=== PATIENT | male | born 1980 ===

== ENCOUNTER 2023-11-02 14:37 | Outpatient (REF) | payer MEDICAID, SELFPAY ==
--- NOTE | ~2023-11-02 | XR_ITS ---
EXAMINATION: XR LUMBOSACRAL SPINE CLINICAL INFORMATION: Low back pain, sciatica COMPARISON: None available. TECHNIQUE: Three views of the lumbosacral spine. FINDINGS: Straightening of lumbar lordosis. The lumbar vertebral bodies demonstrate normal height. Minimal retrolisthesis of L5 over S1. Mild intervertebral disc space narrowing at L4-L5 and L5-S1. Mild facet arthropathy at multiple levels. Paraspinous soft tissues appear unremarkable. Bilateral sacroiliac joints are intact. XR/XR lumbar spine 2-3V IMPRESSION: Mild degenerative changes at L4-L5 and L5-S1. Mild multilevel facet arthropathy.
== END 2023-11-02 14:38 | disposition home or self-care (01) ==
LOC: HO.HHCX 14:37
PROVIDERS: Visit Provider Internal Medicine
DX: M54.31 Sciatica, right side (principal); M54.32 Sciatica, left side
CPT/HCPCS: 72100

== ENCOUNTER 2024-01-09 01:41 | Emergency (ER) | payer MEDICAID, SELFPAY ==
--- NOTE | ~2024-01-09 | CT_ITS ---
EXAMINATION: CT ABDOMEN AND PELVIS WITHOUT CONTRAST CLINICAL INFORMATION: Right flank pain. COMPARISON: None available. TECHNIQUE: Multidetector volumetric imaging was performed from the superior aspect of the liver through the pubic symphysis. Sagittal and coronal reformatted images were obtained on the technologist's workstation. This CT examination was performed using dose optimization techniques as appropriate, variously including the following: *Automated exposure control *Adjustment of mA and/or kV according to patient size (this includes techniques or standardized protocols for targeted exams where dose is matched to indication/reason for exam; i.e. extremities or head) *Use of iterative reconstruction technique DLP: 681 mGy-cm FINDINGS: LUNG BASES: The visualized lung bases are unremarkable. LIVER, GALLBLADDER, AND BILIARY TREE: The liver is normal in size, shape, and attenuation. No focal hepatic lesion or biliary ductal dilatation is present. Gallstones are noted. PANCREAS: Unremarkable. SPLEEN: Unremarkable. ADRENAL GLANDS: Unremarkable. KIDNEYS AND URETERS: The kidneys are normal in size, shape, and attenuation. No hydronephrosis, hydroureter, or calculi seen. No perinephric stranding. There is a 2 cm hypodensity upper pole left kidney likely a cyst. BLADDER: Unremarkable. GASTROINTESTINAL TRACT: The small and large bowel are unremarkable. The appendix is unremarkable. ABDOMINAL WALL: There is a small umbilical hernia containing fat. LYMPH NODES: Normal. VASCULAR: Unremarkable. PELVIC VISCERA: Unremarkable. OSSEOUS STRUCTURES: Unremarkable. CT/CT abdomen pelvis wo IV con IMPRESSION: 1. No evidence of renal calculi or hydronephrosis. 2. Cholelithiasis. 3. Small umbilical hernia containing fat. Fleischner guidelines were followed. Electronically signed by: Mp Rueda MD 01/09/2024 03:59 AM EDT
[2024-01-09 01:45] VITALS: BP 163/89; PULSE 71; RESP 18; TEMP 36.4; O2SAT 100; BMI 32.7
--- NOTE | 2024-01-09 02:10 | ED.ABDPAIN ---
HPI - Abdominal Pain General Chief Complaint: Abdominal Pain Stated Complaint: abd pain Time Seen by Provider: 01/09/24 02:10 Source: patient Mode of arrival: ambulatory Limitations: no limitations History of Present Illness ED Provider: grace HPI narrative: Patient with history of gallstones 6 months ago when he was in [place] had minor episodes of abdominal pain after that had dinner earlier since 23:00 noted pain in epigastric area radiated to the right flank area with nausea and vomiting x2 no urinary complaints no hematuria Related Data Previous Rx's ?Medication ?Instructions ?Recorded ondansetron 4 mg disintegrating 4 mg PO Q6-8H PRN nausea and 01/09/24 tablet vomiting #7 tabs oxycodone 5 mg tablet 5 mg PO Q6H PRN pain #20 tabs 01/09/24 Allergies Allergy/AdvReac Type Severity Reaction Status Date / Time No Known Allergies Allergy Verified 01/09/24 01:47 [No Known Allergies*] Review of Systems Review of Systems Yes all other systems are reviewed and are negative [facility] Social History Social History Smoked in Last 30 Days: No Use of substances other than those prescribed or required for medical reasons: No Advance Directives: No Do you have a plan to hurt others: No Plan Physical Exam ED Vital Signs: Vital Signs - 24 hr 01/09/24 01:45 01/09/24 03:46 Temperature 97.5 F 98 F Pulse Rate 71 62 Respiratory Rate 18 16 Blood Pressure 163/89 H 161/95 H Pulse Oximetry 100 99 Oxygen Delivery Method Room Air Room Air BMI result Body Mass Index 32.7 Appearance: Alert. Oriented X3. No acute distress. Eyes: PERRLA, No Nystagmus ENT: Pharynx normal. Oral Mucosa moist Neck: Normal inspection. Neck supple. CVS: Normal heart rate and rhythm. Pulses normal. Respiratory: No respiratory distress. Equal air entry bilateral, no wheezing/rales/rhonchi Abdomen: Soft and deep tenderness epigastric area and right CVA Bowel sounds are present, no mass palpable, Skin: Skin warm and dry. Normal skin color. Normal skin turgor. Extremities: No lower extremity edema. No calf tenderness Neuro: Oriented X 3. No motor deficit. Medical Decision Making Medical Decision Making MDM Narrative: Patient's gallstones no signs of cholecystitis labs are stable CT scan shows gallstones multiple in his gallbladder area no wall thickening or free fluid around the gallbladder Differential Diagnosis Differential Diagnoses: The differential diagnosis associated with the presentation includes Lab Data MDM Lab Attestation statement: I reviewed the patient's lab results. 01/09/24 02:06 01/09/24 02:26 Labs: Lab Results 01/09/24 01/09/24 01/09/24 Range/Units 02:06 02:26 04:04 WBC 7.0 (4.8-10.8) X10*3/uL RBC 5.43 (4.60-5.80) X10*6/uL Hgb 16.1 (14.0-18.0) g/dl Hct 47.4 (42.0-52.0) % MCV 87.3 (80.0-98.0) fL MCH 29.7 (27.0-33.0) pg MCHC 34.0 (31.0-36.0) g/dl RDW 12.9 (11.0-16.0) % Plt Count 162 (160-400) X10*3/uL MPV 11.8 (9.4-12.4) fL Immature Gran % (Auto) 0.1 (0.0-0.4) % Neut % (Auto) 49.8 (45-73) % Lymph % (Auto) 36.8 (20-40) % [place] % (Auto) 10.3 (2-11) % Eos % (Auto) 2.3 (0-4) % Baso % (Auto) 0.7 (0-2) % Lymph # (Auto) 2.6 (1.2-4.9) X10*3/uL [place] # (Auto) 0.7 (0.1-1.2) X10*3/uL Eos # (Auto) 0.2 (0.0-0.4) X10*3/uL Baso # (Auto) 0.1 (0.0-0.2) X10*3/uL Abs Immat Gran (auto) 0.01 (0.00-0.03) X10*3/uL Absolute Neuts (auto) 3.5 (2.0-8.3) x10*3/uL Absolute Nucleated RBC 0.000 (0.0-0.012) X10*3/uL Nucleated RBC % (auto) 0.0 (0.0-0.2) /100WBC Sodium 142 (135-145) mmol/L Potassium 4.1 (3.3-5.1) mmol/L Chloride 106 (96-108) mmol/L Carbon Dioxide 28 (22-29) mmol/L Anion Gap 12 (12-20) BUN 16 (9-16) mg/dL Creatinine 1.12 (0.5-1.4) mg/dL Estim Creat Clear Calc 90.2 Estimated GFR > 60 Random Glucose 118 H (60-115) mg/dL Calcium 8.9 (8.4-10.2) mg/dL Total Bilirubin 0.4 (0.0-1.0) mg/dL Direct Bilirubin 0.1 (0.0-0.5) mg/dL AST 21 (5-37) U/L ALT 27 (0-40) U/L Alkaline Phosphatase 59 (39-117) U/L Total Protein 7.1 (6.5-8.0) g/dL Albumin 4.2 (3.5-5.0) g/dL Lipase 49 (8-78) U/L Urine Color Yellow Urine Appearance Clear Urine pH 6.0 (5.0-9.0) Ur Specific [place] 1.020 (1.005-1.025) Urine Protein Negative (Neg-Trace) mg/dL Urine Glucose (UA) Negative (Negative) mg/dL Urine Ketones Negative (Negative) mg/dL Urine Blood Negative (Negative) Urine Nitrite Negative (Negative) Ur Leukocyte Esterase Negative (Negative) Radiology Impression Discussion of test interpretation with radiology: I have reviewed the radiologist's reading. Radiologist Impression: [place] [id number] CT Scan Report Signed Patient: Caleb Love MR#: [id number] : 1980 Acct:[id number] Age/Sex: 43 / M ADM Date: 01/09/24 Loc: HO.ED Attending Dr: Ordering Physician: Mckay Banegas MD Date of Service: 01/09/24 Procedure(s): CT abdomen pelvis wo IV con Accession Number(s): [id number] cc: Physician,Unknown ; Mckay Banegas MD~ EXAMINATION: CT ABDOMEN AND PELVIS WITHOUT CONTRAST CLINICAL INFORMATION: Right flank pain. COMPARISON: None available. TECHNIQUE: Multidetector volumetric imaging was performed from the superior aspect of the liver through the pubic symphysis. Sagittal and coronal reformatted images were obtained on the technologist's workstation. This CT examination was performed using dose optimization techniques as appropriate, variously including the following: *Automated exposure control *Adjustment of mA and/or kV according to patient size (this includes techniques or standardized protocols for targeted exams where dose is matched to indication/reason for exam; i.e. extremities or head) *Use of iterative reconstruction technique DLP: 681 mGy-cm FINDINGS: LUNG BASES: The visualized lung bases are unremarkable. LIVER, GALLBLADDER, AND BILIARY TREE: The liver is normal in size, shape, and attenuation. No focal hepatic lesion or biliary ductal dilatation is present. Gallstones are noted. PANCREAS: Unremarkable. SPLEEN: Unremarkable. ADRENAL GLANDS: Unremarkable. KIDNEYS AND URETERS: The kidneys are normal in size, shape, and attenuation. No hydronephrosis, hydroureter, or calculi seen. No perinephric stranding. There is a 2 cm hypodensity upper pole left kidney likely a cyst. BLADDER: Unremarkable. GASTROINTESTINAL TRACT: The small and large bowel are unremarkable. The appendix is unremarkable. ABDOMINAL WALL: There is a small umbilical hernia containing fat. LYMPH NODES: Normal. VASCULAR: Unremarkable. PELVIC VISCERA: Unremarkable. OSSEOUS STRUCTURES: Unremarkable. CT/CT abdomen pelvis wo IV con IMPRESSION: 1. No evidence of renal calculi or hydronephrosis. 2. Cholelithiasis. 3. Small umbilical hernia containing fat. Fleischner guidelines were followed. Electronically signed by: Mp Rueda MD 01/09/2024 03:59 AM EDT Medications Administered Discontinued Medications Generic Name Dose Route Start Last Admin Trade Name Freq PRN Reason Stop Dose Admin Sodium Chloride 1,000 mls @ 999 mls/hr 01/09/24 02:21 01/09/24 03:36 Ns IV 01/09/24 03:21 Infused .Q1H1M ONE Infusion Ketorolac Tromethamine 30 mg 01/09/24 03:41 01/09/24 03:46 Ketorolac Tromethamine 30 Mg/Ml Vial IVPUSH 01/09/24 03:42 30 mg ONCE ONE Administration Morphine Sulfate 4 mg 01/09/24 02:21 01/09/24 02:30 Morphine Sulfate 4 Mg/Ml Cartridge IVPUSH 01/09/24 02:22 4 mg ONCE ONE Administration Protocol Ondansetron HCl 4 mg 01/09/24 02:21 01/09/24 02:30 Ondansetron Hcl 4 Mg/2 Ml Vial IVPUSH 01/09/24 02:22 4 mg ONCE ONE Administration Discharge Plan Discharge Clinical Impression: Gallstone Patient Disposition: Home, Self-Care Instructions: Gallstones (ED) Additional Instructions: Avoid fried food Follow up with surgeon for further evaluation and management Prescriptions: New ondansetron 4 mg tablet,disintegrating 4 mg PO Q6-8H PRN (Reason: nausea and vomiting) Qty: 7 0RF oxycodone 5 mg tablet 5 mg PO Q6H PRN (Reason: pain) Qty: 20 0RF Rx Instructions: Partial Fill upon patient request. Referrals: Rafa Muñoz MD [Physician] - 1 week Print Language: Danish
[2024-01-09 02:11] LABS: MANUAL DIFF FLAG NO
[2024-01-09 02:17] LABS: Basophils Absolute Auto 0.1 X10*3/uL (0.0-0.2); Basophils Percent Auto 0.7 % (0-2); Eosinophils Absolute Auto 0.2 X10*3/uL (0.0-0.4); Eosinophils Percent Auto 2.3 % (0-4); Hematocrit 47.4 % (42.0-52.0); Hemoglobin 16.1 g/dl (14.0-18.0); Imm Gran Abs Auto 0.01 X10*3/uL (0.00-0.03); Imm Gran Pct Auto 0.1 % (0.0-0.4); Lymphocytes Absolute Auto 2.6 X10*3/uL (1.2-4.9); Lymphocytes Percent Auto 36.8 % (20-40); Mean Corpuscular Hemoglobin 29.7 pg (27.0-33.0); Mean Corpuscular Volume 87.3 fL (80.0-98.0); Mean Platelet Volume 11.8 fL (9.4-12.4); Monocytes Absolute Auto 0.7 X10*3/uL (0.1-1.2); Monocytes Percent Auto 10.3 % (2-11); Neutrophils Absolute Auto 3.5 x10*3/uL (2.0-8.3); Neutrophils Percent Auto 49.8 % (45-73); Platelet Count 162 X10*3/uL (160-400); Red Blood Count 5.43 X10*6/uL (4.60-5.80); Red Cell Distribution Width 12.9 % (11.0-16.0)
[2024-01-09] MEDS: 0.9 % Sodium Chloride 1,000 ML 999 ML IV (02:29)
[2024-01-09] MEDS: Morphine Sulfate 4 MG/ML CARTRIDGE IVPUSH (02:30)
[2024-01-09] MEDS: ondansetron HCL 4 MG/2 ML VIAL IVPUSH (02:30)
--- NOTE | 2024-01-09 02:32 | PC.NURSE ---
Pt medicated per Mar.
[2024-01-09 02:45] LABS: Alanine Aminotransferase 27 U/L (0-40); Albumin Level 4.2 g/dL (3.5-5.0); Alkaline Phosphatase 59 U/L (39-117); Anion Gap 12 (12-20); Aspartate Amino Transferase 21 U/L (5-37); Bilirubin Direct 0.1 mg/dL (0.0-0.5); Bilirubin Total 0.4 mg/dL (0.0-1.0); Blood Urea Nitrogen 16 mg/dL (9-16); Calcium 8.9 mg/dL (8.4-10.2); Carbon Dioxide 28 mmol/L (22-29); Chloride 106 mmol/L (96-108); Creatinine Clr Calc Pharmacy 90.2; Estimated Glomerular Filt Rate > 60; Glucose Random 118 mg/dL (60-115); Lipase 49 U/L (8-78); Potassium 4.1 mmol/L (3.3-5.1); Sodium 142 mmol/L (135-145); Total Protein 7.1 g/dL (6.5-8.0)
--- NOTE | 2024-01-09 03:22 | PC.NURSE ---
pt back from Ct scan resting in bed.
[2024-01-09 03:46] VITALS: BP 161/95; PULSE 62; RESP 16; TEMP 36.6; O2SAT 99
[2024-01-09] MEDS: Ketorolac Tromethamine 30 MG/ML VIAL IVPUSH (03:46)
--- NOTE | 2024-01-09 03:50 | PC.NURSE ---
medicated for pain management.
[2024-01-09 04:11] LABS: Appearance Urine Clear; Color Urine Yellow; Glucose Urine UA Negative (Negative); Leukocyte Esterase Urine Negative (Negative); Nitrite Urine Negative (Negative); Urine Blood Negative (Negative); Urine Ketones Negative (Negative); Urine Protein Negative (Neg-Trace)
--- NOTE | 2024-01-09 05:00 | PC.NURSE ---
Reviewed discharge instructions with pt, pt verbalized understanding, pain level improved per pt, pt discharge home, pt had a steady gait and no sign of distress.
[2024-01-09 05:01] VITALS: BP 140/82; PULSE 68; RESP 16; TEMP 36.9; O2SAT 98
== END 2024-01-09 05:02 | disposition home or self-care (01) ==
PROVIDERS: Emergency Provider Internal Medicine
DX: K80.20 Calculus of gallbladder without cholecystitis without obstruction (principal); R10.13 Epigastric pain; R10.2 Pelvic and perineal pain; Z79.899 Other long term (current) drug therapy
CPT/HCPCS: 36415; 74176; 80048; 80076; 81003; 83690; 85025; 99284; 99285; J1885; J2270; J2405

== ENCOUNTER 2024-01-18 14:38 | Outpatient (AMB) | payer MEDICAID, SELFPAY ==
--- NOTE | 2024-01-18 14:45 | MHC.OFFVIS ---
Vital Signs 01/18/24 14:52 Height 5 ft 9 in Weight 200 lb BMI 29.5 BP 129/76 Blood Pressure Location Lt brachial Position Sitting Pulse 70 Intake Visit Reasons: abdominal pain/gallstones Intake Note: Patient is seen in office for ER follow up visit, following abdominal pain. Pt c/o: admits to abdominal pain on and off for aprox 6 months, had not been to ED prior, dx with gastritis in the past and was aggravated by abdominal pain, was told has stones and inflammation, still discomfort in the area taking Ibuprofen PRN ER/CT: 01/09/24 Manager Internet Required: Yes Manager Internet Language: Pickling Operator Services: Manager Internet Present Manager Internet Name: Jasmine RODRIGUEZ Information Interpreted: non-clinical & clinical Accompanied by: Family/Other Allergies No Known Allergies [No Known Allergies*] Allergy (Verified 01/18/24 14:50) Medication List - Last Reconciled 01/18/24 by Darin Wilkes MD No Known Home Meds HPI Comments Details: 43-year-old male patient presenting with complaints of abdominal pain in the epigastrium radiating across the right upper quadrant into the right flank. The pain is been progressing over the past 6 months becoming more severe and more frequent. He was evaluated in the emergency department on 01/09/2024. CT abdomen and pelvis confirmed gallstones in the neck of the gallbladder with no evidence of ductal dilatation or pericholecystic fluid. He reports the pain seems to be made worse with eating especially with greasy/fried foods, pizza in particular. Spicy foods also seem to bother him as well. He reports nausea without vomiting, chills without fever. He denies any bowel changes. He presents today to discuss cholecystectomy. [facility] Medical History (Updated 01/18/24 @ 15:10 by Darin Wilkes MD) Chronic cholecystitis due to cholelithiasis with choledocholithiasis Family History Father Stomach cancer Social History Alcohol intake: never Patient Tobacco Use Status: Never used Tobacco Review of Systems Const All systems reviewed & are unremarkable except as noted in HPI and below Physical Exam Const General: cooperative and no acute distress Nutritional Appearance: well nourished Orientation/consciousness: patient oriented x3 Limitations: no limitations HEENT Head: Yes normocephalic and Yes atraumatic Ears: hearing grossly normal bilaterally Resp Effort & Inspection: normal respiratory effort, no audible wheezes, no cough and no respiratory distress Cardio Jugular venous distension: no JVD GI Inspection: Yes normal to inspection Palpation (GI): Soft to palpation, Tenderness to palpation present (GI) in the RUQ and Recinos's sign positive, no guarding and not rigid Percussion: Yes normal to percussion Auscultation: normal bowel sounds Rectal Exam - Male: Yes deferred Skin Other: Warm, dry, no rash Neuro General: patient oriented x3 Extrem General: Yes no clubbing, cyanosis or edema Results Reviewed Results Reviewed: CT abdomen pelvis: Assessment & Plan Assessment & Plan (1) Chronic cholecystitis due to cholelithiasis with choledocholithiasis: Code(s): K80.64 - Calculus of gallbladder and bile duct with chronic cholecystitis without obstruction Category: Medical Plan 43-year-old male patient presenting with complaints of abdominal pain epigastrium and right upper quadrant radiating into the back found to have multiple gallstones within the gallbladder by CT. Examination today reveals tenderness in the right upper quadrant with a positive Recinos sign. I reviewed the CT findings in detail with the patient and suggested an elective laparoscopic or possible open cholecystectomy. After discussion of the procedure, risks, and alternatives, he consents to the laparoscopic or possible open cholecystectomy. He will be scheduled as a short-stay surgery at his earliest convenience. Medications: Discontinued ondansetron Discontinued Reason: Patient Completed Course 4 mg PO Q6-8H PRN 7 tabs 0RF nausea and vomiting oxycodone Partial Fill upon patient request. Discontinued Reason: Patient Completed Course 5 mg PO Q6H PRN 20 tabs 0RF pain Coding Level of Care Code New Pt Level 4 (61292) Diagnoses Chronic cholecystitis due to cholelithiasis with choledocholithiasis K80.64
[2024-01-18 14:52] VITALS: BP 129/76; PULSE 70; BMI 29.5
== END 2024-01-18 15:04 | disposition home or self-care (01) ==
PROVIDERS: Visit Provider Surgery
DX: K80.64 Calculus of gallbladder and bile duct with chronic cholecystitis without obstruction (principal)
CPT/HCPCS: 99204

== ENCOUNTER → 2024-01-18 14:38 | Outpatient (BNVA) | payer MEDICAID, SELFPAY | PROVIDERS: Visit Provider Surgery | DX: K80.64 Calculus of gallbladder and bile duct with chronic cholecystitis without obstruction (principal); R10.9 Unspecified abdominal pain | CPT/HCPCS: 99202 ==

== ENCOUNTER 2024-02-08 08:30 | Outpatient (AMB) | payer OTHER, SELFPAY ==
[2024-02-08 08:39] VITALS: BP 122/78; PULSE 65; O2SAT 98; BMI 29.3
--- NOTE | 2024-02-08 08:39 | MHC.PC.OV ---
Vital Signs 02/08/24 08:39 Height 5 ft 9 in Weight 198 lb 8 oz BMI 29.3 BP 122/78 Blood Pressure Location Lt brachial Position Sitting Pulse 65 Pulse Source Pulse Oximeter Pulse Oximetry (%) 98 Oxygen Delivery Method Room Air Intake Visit Reasons: new patient Cut Out Marker Required: No Accompanied by: Self / Same As Patient Allergies No Known Allergies [No Known Allergies*] Allergy (Verified 02/17/24 17:12) Medication List - Last Reconciled 02/17/24 by Jann Mondragon MD ketoconazole 2% 1 appl topical DAILY oxycodone 5 mg PO Q6H PRN Tobacco use date assessed: 02/08/24 Dental Screening Dental Screen Date: 02/08/24 Did you have a dental visit in the last 12 months?: Yes Did you have a dental problem in the last 6 months where you did not have access to dental care?: No Was dental information given to patient?: Patient has dentist HPI new patient HPI Details 43-year-old male presents to the office to establish his care here. The physician food and beverage assistant present in the room was translating. Healthy male presented to the emergency room with abdominal pain. He was found to have gallstones and the surgeon is planning to do a cholecystectomy. He did not have a primary care provider and was advised to get 1 before the surgery. Currently patient is in good health and on no medications. He is a nonsmoker and no history of substance or alcohol use. Able to function and do all activities of daily living. Works at the local [employer]. [facility] Medical History Chronic cholecystitis due to cholelithiasis with choledocholithiasis Surgical History No pertinent past surgical history Family History Father Stomach cancer Social History Housing: House Alcohol intake: never Patient Tobacco Use Status: Never used Tobacco e-Cigarette/Vaping Use: Never Used service: No Current occupational status: employed Current occupational exposures/hazards: No Cognitive needs: No Hearing needs: No Vision needs: No Questionnaire PHQ-9 Over the last 2 weeks, how often have you been bothered by any of the following problems? 3. Trouble falling or staying asleep, or sleeping too much: not at all 4. Feeling tired or having little energy: several days 5. Poor appetite or overeating: several days 6. Feeling bad about yourself - or that you are a failure or have let yourself or your family down: several days 7. Trouble concentrating on things, such as reading the newspaper or watching television: not at all 8. Moving or speaking so slowly that other people could have noticed. Or the opposite - being so fidgety or restless that you have been moving around a lot more than usual: not at all 9. Thoughts that you would be better off or of hurting yourself in some way: not at all Source: Developed by Drs. Jeanmarie Abreu, Becky Estrada, Jaylen Parham and colleagues, with an educational bartolome from [employer]. Thrive Questionnaire Date Thrive assessed: 02/08/24 I am a: Patient What is your living situation today?: I have a steady place to live Within the past 12 months, did the food you bought not last and you didn't have the money to get more?: I choose not to answer this question Within the past 12 months, did you worry whether your food would run out before you got money to buy more?: I choose not to answer this question Do you have trouble paying for medicines?: No Do you have trouble getting transportation to medical appointments?: No Do you have trouble paying your heating and electricity bill?: I choose not to answer this question Do you have trouble taking care of your child, family member or friend?: I choose not to answer this question Do you have trouble with day-to-day activities such as bathing, preparing meals, shopping, managing finances, etc.?: No Are you currently unemployed and looking for a job?: No Are you interested in more education?: No Please select the resources that you would like help with: None Currently or been in a relationship where the following occur: I choose not to answer THRIVE Score: 0 AUDIT C Alcohol Use Questionnaire (AUDIT-C) 1. How often do you have a drink containing alcohol?: Never 3. How often do you have six or more drinks on one occasion?: Never Total Score: 0 SIGRID-7 AMB Questionnaire SIGRID-7 Date SIGRID - 7 assessed: 02/08/24 Feeling nervous, anxious, or on edge: 0 = Not at all Not being able to stop or control worryin = Not at all Worrying too much about different things: 0 = Not at all Trouble relaxin = Not at all Being so restless that it is hard to sit still: 0 = Not at all Becoming easily annoyed or irritable: 0 = Not at all Feeling afraid as if something awful might happen: 0 = Not at all Total SIGRID-7 score (0-4 normal; 5-9 mild; 10-14 moderate; 15-21 severe): 0 Source: Developed by Drs. Jeanmarie Abreu, Becky Estrada, Jaylen Parham and colleagues, with an educational bartolome from [employer]. Physical exam (Primary Care) Vital Signs: Last Vital Signs Pulse 65 02/08/24 08:39 BP 122/78 02/08/24 08:39 Pulse Ox 98 02/08/24 08:39 Oxygen Delivery Method Room Air 02/08/24 08:39 BMI result Body Mass Index 29.3 Tobacco/Smoking Status: Tobacco use Status Tobacco use date assessed 02/08/24 02/08/24 08:44 Patient Tobacco Use Status Never used Tobacco 02/08/24 08:44 e-Cigarette/Vaping Use Never Used 02/08/24 08:44 Thrive Assessment: Date of Thrive Assessment Date Thrive assessed 02/08/24 02/08/24 08:44 Currently or been in a relationship where the following occur: I choose not to answer Const General: cooperative and healthy appearing Nutritional Appearance: well nourished Orientation/consciousness: patient oriented x3 Limitations: no limitations HENMT Head: Yes normal to inspection Eyes General: appearance normal, both eyes and all related structures Neck Neck: Yes normal visual inspection Chest Chest palpation & inspection: normal palpation of entire chest wall Resp Effort & Inspection: normal respiratory effort Skin Other: Hyperpigmented area 3 cm in size or near the left arm with overlying scales. Similar lesion on the right arm. Neuro General: patient oriented x3 Office Procedures EKG 59480-Efuqzvqjyvyxennry, Complete Flu Questionnaire Does the patient have a severe egg allergy?: No Does the patient have severe life threatening allergies?: No Does the patient have a fever or illness today?: No Has the patient ever had Guillain-Anza Syndrome?: No Has the patient ever had any past reaction to a flu shot?: No Results AMB Hemoglobin A1c AMB Hemoglobin A1c 5.4 % Last Edit by JENNIFER Seo on 02/08/24 09:34 Immunizations Fluarix Triv [id number] (PF) 45 mcg (15 mcg x 3)/0.5 mL IM syringe Performing Provider: Jann Mondragon MD [place] [facility] [facility] Administered by: JENNIFER Seo on 02/08/24 09:11 Dose Route Admin Location Dispensed Lot Number Expiration Date [employer] 0.5 mL IM Right Deltoid 0.5 mL [id number] 09/18/24 [id number] [place] VIS Given Date VIS Provided VIS Publication Date 02/08/24 Single Vaccine 20 Eligibility Eligibility Date Funding Source Not [facility] Eligible 02/08/24 Private Results Reviewed Results Reviewed: Laboratory Last Values Hgb A1c (Clinic) 5.4 % (4.0-6.0) 02/08/24 09:10 Coding Level of Care Code New Pt Level 4 (19765) Complex EM visit Add On G2211 Diagnoses Chronic cholecystitis due to cholelithiasis with choledocholithiasis K80.64 Tinea corporis B35.4 Encounter for pre-operative cardiovascular clearance Z01.810 CPT Codes EKG - CPT: 27440-[id number], Complete ([id number]) Assessment & Plan Assessment & Plan (1) Chronic cholecystitis due to cholelithiasis with choledocholithiasis: Code(s): K80.64 - Calculus of gallbladder and bile duct with chronic cholecystitis without obstruction Category: Medical Plan: Patient can proceed for surgery. Postop care and DVT prophylaxis as per the general surgeon. Cholesterol blood work has been added to the regimen. (2) Tinea corporis: Code(s): B35.4 - Tinea corporis Plan: Ketoconazole ointment has been prescribed. (3) Encounter for pre-operative cardiovascular clearance: Code(s): Z01.810 - Encounter for preprocedural cardiovascular examination Plan: As above. Orders: Orders AMB EKG-In Office 02/08/24 K80.64 - Calculus of gallbladder and bile duct with chronic cholecystitis without obstruction Influenza [id number] Immunization 02/08/24 Z23 - Encounter for immunization AMB Hemoglobin A1c 02/08/24 Z13.9 - Encounter for screening, unspecified Lipid Panel 02/08/24 K80.64 - Calculus of gallbladder and bile duct with chronic cholecystitis without obstruction Medications: New ketoconazole 2% 1 appl topical DAILY 30 grams 1RF
== END 2024-02-08 09:23 | disposition home or self-care (01) ==
PROVIDERS: PCP Internal Medicine; Visit Provider Internal Medicine
DX: K80.64 Calculus of gallbladder and bile duct with chronic cholecystitis without obstruction (principal); B35.4 Tinea corporis; Z01.810 Encounter for preprocedural cardiovascular examination

== ENCOUNTER 2024-02-08 08:30 | Outpatient (REF) | payer OTHER, SELFPAY ==
[2024-02-08 11:41] LABS: Cholesterol 172 mg/dL (<200); HDL Cholesterol 51 mg/dL (>40); LDL Cholesterol Calculated 99 mg/dL (<100); Triglycerides 113 mg/dL (<150)
== END 2024-02-08 08:31 | disposition home or self-care (01) ==
LOC: HO.LAB 08:30
PROVIDERS: PCP Internal Medicine; Visit Provider Internal Medicine
DX: K80.64 Calculus of gallbladder and bile duct with chronic cholecystitis without obstruction (principal); B35.4 Tinea corporis; Z23 Encounter for immunization
CPT/HCPCS: 36415; 80061; 83036; 90471; 90656; 93005; 96127; 99202

== ENCOUNTER 2024-02-14 11:40 | Day surgery (SDC) | payer OTHER, SELFPAY ==
--- NOTE | 2024-02-11 09:59 | P.CONAN_ITS ---
Documented by User: Apryl Tse NP 02/11/24 10:04 HPI - Anesthesia Eval Consult details Narrative: 43yo M for Cholecystectomy Laparoscopic, possible open Medically optimized per PCP [facility] Active Problems Active Problems: All Active Problems Chronic cholecystitis due to cholelithiasis with choledocholithiasis (Acute) Past Medical History Medical History Chronic cholecystitis due to cholelithiasis with choledocholithiasis Family History Family History Father Stomach cancer Surgical History Surgical History No pertinent past surgical history Social History Social History Housing: House Alcohol intake: never Patient Tobacco Use Status: Never used Tobacco e-Cigarette/Vaping Use: Never Used Use of substances other than those prescribed or required for medical reasons: No Are you DNR?: No Advance Directives: No Advance Directives Information Provided: Yes Recently lost weight without trying: No service: No Current occupational status: employed Current occupational exposures/hazards: No Cognitive needs: No Hearing needs: No Vision needs: No Meds Allergies Allergy/AdvReac Type Severity Reaction Status Date / Time No Known Allergies Allergy Verified 02/14/24 12:18 [No Known Allergies*] Exam Pertinent Lab Results Pertinent Lab Results: Laboratory Tests 01/09/24 01/09/24 02:06 02:26 WBC 7.0 Hgb 16.1 Hct 47.4 Plt Count 162 Sodium 142 Potassium 4.1 Chloride 106 Carbon Dioxide 28 BUN 16 Creatinine 1.12 Narrative Narrative: EKG 01/2024 SB @ 58 RSR' in V1 Assessment and Plan Assessment Anesthesia Assessment: Chart Reviewed Documented by User: Tania Lozoya MD 02/14/24 13:21 [facility] Past Medical History Medical History Chronic cholecystitis due to cholelithiasis with choledocholithiasis Family History Family History Father Stomach cancer Surgical History Surgical History No pertinent past surgical history History of Problems with Anesthesia: No Social History Social History Housing: House Alcohol intake: never Patient Tobacco Use Status: Never used Tobacco e-Cigarette/Vaping Use: Never Used Use of substances other than those prescribed or required for medical reasons: No Are you DNR?: No Advance Directives: No Advance Directives Information Provided: Yes Recently lost weight without trying: No service: No Current occupational status: employed Current occupational exposures/hazards: No Cognitive needs: No Hearing needs: No Vision needs: No Meds Allergies Allergy/AdvReac Type Severity Reaction Status Date / Time No Known Allergies Allergy Verified 02/14/24 12:18 [No Known Allergies*] Exam Airway Mallampati Class: III TM Dist: >3cm Neck ROM: Full Loose/Missing/Broken Teeth: No Heart: RRR Lungs: CTA Assessment and Plan Assessment Anesthesia Assessment: Anesthesia Plan Discussed Final Anesthetic Review History of Problems with Anesthesia: No NPO: Yes ASA Class: I Final Preanesthetic Review: Meds/Allgs Chart Reviewed, Consent Obtained/Reviewed and Anes Risks/Benef Reviewed Patient Risk: Low Procedure Risk: Intermediate Anesthetic Plan Anesthetic Plan: GA Disposition: Standard PACU
[2024-02-14] VITALS (13 sets, daily range): BP systolic 119–131; BP diastolic 71–84; PULSE 58–83; RESP 15–20; TEMP 36.1–36.8; O2SAT 92–99; BMI 28.6
[2024-02-14] MEDS: Lactated Ringers 1,000 ML 100 ML IVCONT (12:35)
--- NOTE | 2024-02-14 13:22 | HO.ANESPROP2 ---
[facility] Active Problems Active Problems: All Active Problems Chronic cholecystitis due to cholelithiasis with choledocholithiasis (Acute) Past Medical History Medical History Chronic cholecystitis due to cholelithiasis with choledocholithiasis Family History Family History Father Stomach cancer Surgical History Surgical History No pertinent past surgical history History of Problems with Anesthesia: No Social History Social History Housing: House Alcohol intake: never Patient Tobacco Use Status: Never used Tobacco e-Cigarette/Vaping Use: Never Used Use of substances other than those prescribed or required for medical reasons: No Are you DNR?: No Advance Directives: No Advance Directives Information Provided: Yes Recently lost weight without trying: No service: No Current occupational status: employed Current occupational exposures/hazards: No Cognitive needs: No Hearing needs: No Vision needs: No Meds Allergies Allergy/AdvReac Type Severity Reaction Status Date / Time No Known Allergies Allergy Verified 02/14/24 12:18 [No Known Allergies*] Active Medications: Current Medications Lactated Ringer's (Lr) 1,000 mls @ 100 mls/hr IVCONT .Q10H EBN Last Admin: 02/14/24 12:35 Dose: 100 mls/hr Exam Height,Weight and Vital Signs: Height 5 ft 9 in Weight 87.997 kg Last Vital Signs Temp 98.2 F 02/14/24 12:28 Pulse 58 02/14/24 12:28 Resp 15 02/14/24 12:28 BP 131/84 02/14/24 12:28 Pulse Ox 99 02/14/24 12:28 O2 Del Method Room Air 02/14/24 12:28 Airway Mallampati Class: II TM Dist: >3cm Neck ROM: Full Loose/Missing/Broken Teeth: No Heart: RRR Lungs: CTA Assessment and Plan Assessment Anesthesia Assessment: Anesthesia Plan Discussed and Chart Reviewed Final Anesthetic Review History of Problems with Anesthesia: No NPO: Yes ASA Class: I Final Preanesthetic Review: Meds/Allgs Chart Reviewed, Consent Obtained/Reviewed and Anes Risks/Benef Reviewed Patient Risk: Low Procedure Risk: Intermediate Anesthetic Plan Anesthetic Plan: GA Disposition: Standard PACU
--- NOTE | 2024-02-14 13:25 | MHC.SHP ---
Pre-Procedural Eval Section A - 24 Hr Update-Section A only Date of Service: 02/14/24 The patient is an INPATIENT: No Changes since office visit: Yes Patient answered all questions; No Cold of Flu in the past 2 weeks, No New Medical Problems and No Changes in Medication The patient has been examined within 24 hours of the surgical procedure. The History & Physical has been completed within 30 days and I have reviewed it.: Yes Section B - Complete if H&P > 30 days Chief Complaint: Calculus of gallbladder and bile duct with chronic Allergies: Allergies Allergy/AdvReac Type Severity Reaction Status Date / Time No Known Allergies Allergy Verified 02/14/24 12:18 [No Known Allergies*] Plan Diagnosis/Plan: Unchanged I have reviewed the history and physical and performed a pertinent physical examination on my patient. No changes have occurred unless specified. Time Spent With Patient Time: Total time managing care of this patient today ____ minutes.
--- NOTE | 2024-02-14 14:58 | P.OP_ITS ---
Operative Note Operative Note Date of Service: 02/14/24 Narrative: Preoperative diagnosis: Acute cholecystitis, cholelithiasis Postoperative diagnosis: Same Procedure: Laparoscopic cholecystectomy Surgeon: Darin Wilkes MD African Studies Professor: ADRIENNE Morales Anesthesia: General endotracheal Indications for procedure: 43-year-old male patient presenting with complaints of right upper quadrant abdominal pain associated with fatty food intake. Workup revealed multiple gallstones within the gallbladder. Operative findings: Acute and chronic cholecystitis due to cholelithiasis. Specimen: gallbladder Estimated blood loss: 5 mL Complications: None Procedure details: Patient was brought to the OR and placed in a supine position. After administering general anesthesia the patient's abdomen was prepped with ChloraPrep and draped in a sterile fashion. A surgical time-out was called the consent confirmed. Patient received preoperative antibiotics and Venodyne boots were in place. Local anesthesia consisting of 0.5% Sensorcaine without epinephrine was infiltrated in a periumbilical region. A 5 mm incision was made above the umbilicus in a transverse fashion. The Veress needle was then inserted while elevating abdominal cavity with towel clips. After positive drop test the abdomen was insufflated to a pressure of 15 mm of mercury. The Veress needle was then removed and a 5 mm trocar inserted. The camera was inserted in the abdomen explored. A 12 mm trocar was then placed in the epigastrium. Two 5 mm trocars placed in the right upper quadrant by the therapeutic recreation assistant. The patient was placed in reverse Trendelenburg positioning and rotated to the left. The gallbladder was grasped with the fundus and retracted cephalad by the therapeutic recreation assistant. The infundibulum was then grasped and retracted away from the liver bed, also by the therapeutic recreation assistant. The Dolphin dissected was then used by the surgeon to dissect the peritoneum off the infundibulum to reveal the junction with the cystic duct. Cystic artery was noted slightly medial and posterior to the cystic duct. After obtaining a critical view the cystic duct was doubly clipped and divided. The cystic artery was then doubly clipped and divided. The gallbladder was then dissected off the liver bed using electrocautery with an L hook. Hemostasis was assured all times using the electrocautery. When the gallbladder is completely dissected off the liver bed was placed in an Endo-Catch bag and brought out through the epigastric incision. The gallbladder was sent to pathology for further examination. The abdomen was then re-examined. The liver bed was irrigated and suctioned dry. No bleeding or bile leak could be identified. CO2 was then evacuated and all trocars removed. Fascia was closed at the epigastric incision using a [id number] 0 Polysorb suture. Skin was closed in all incisions using a subcuticular 4 0 Polysorb suture by both the surgeon and therapeutic recreation assistant. Sterile dressings consisting of Steri-Strips, 2 x 2 gauze, and Tegaderm were then applied. The patient tolerated the procedure well. Sponge instrument and needle counts reported as correct. The patient was transferred to PACU in stable condition.
[2024-02-14] MEDS: fentaNYL citrate/PF 100 MCG/2 ML VIAL 25 MCG IVPUSH ×2 (15:21→15:35)
[2024-02-14] MEDS: oxyCODONE HCl Immed Release 5 MG TABLET PO (15:54)
== END 2024-02-14 16:46 | disposition home or self-care (01) ==
PROVIDERS: PCP Internal Medicine; Visit Provider Surgery
PROC: 0FT44ZZ Resection of Gallbladder, Percutaneous Endoscopic Approach (ICD-10-PCS; CPT 47562; principal; 2024-02-14 14:00)
DX: K80.12 Calculus of gallbladder with acute and chronic cholecystitis without obstruction (principal); R11.0 Nausea; Z80.0 Family history of malignant neoplasm of digestive organs
CPT/HCPCS: 47562; 88304; J0131; J1100; J2003; J2250; J2405; J2704; J2795; J3010

== ENCOUNTER → 2024-02-14 11:40 | Outpatient (BNV) | payer OTHER, SELFPAY | PROVIDERS: PCP Internal Medicine; Visit Provider Surgery | DX: K80.00 Calculus of gallbladder with acute cholecystitis without obstruction (principal) | CPT/HCPCS: 47562 ==

== ENCOUNTER 2024-02-24 09:52 | Outpatient (AMB) | payer OTHER, SELFPAY ==
--- NOTE | 2024-02-24 09:55 | A.OFFVIS_ITS ---
Intake Visit Reasons: S/P lap patrizia Intake Note: Patient here s/p laparoscopic cholecystectomy. Patient c/o: reports incisions healing well. No longer taking rx pain meds. SX: . Merchandising Consultant Required: No Accompanied by: Spouse Allergies No Known Allergies [No Known Allergies*] Allergy (Verified 02/24/24 09:58) Medication List - Last Reconciled 02/24/24 by Darin Wilkes MD ketoconazole 2% 1 appl topical DAILY oxycodone 5 mg PO Q6H PRN HPI Comments Details: 43-year-old male patient returning 1.5 weeks following laparoscopic cholecystectomy. He was found to have acute and chronic cholecystitis due to cholelithiasis. He returns today reporting feeling much improved with decreased abdominal pain and no nausea or vomiting. Denies any problems with his incisions. [facility] Medical History Chronic cholecystitis due to cholelithiasis with choledocholithiasis Surgical History (Updated 02/23/24 @ 10:02 by JENNIFER Moreno) Hx laparoscopic cholecystectomy (02/14/24) Family History Father Stomach cancer Social History Housing: House Alcohol intake: never Patient Tobacco Use Status: Never used Tobacco e-Cigarette/Vaping Use: Never Used service: No Current occupational status: employed Current occupational exposures/hazards: No Cognitive needs: No Hearing needs: No Vision needs: No Review of Systems Const All systems reviewed & are unremarkable except as noted in HPI and below Physical Exam Const General: no acute distress Nutritional Appearance: well nourished Orientation/consciousness: patient oriented x3 Limitations: no limitations Resp Effort & Inspection: normal respiratory effort GI Other: Well-healed trocar incisions without redness or discharge. No hernia noted. Neuro General: patient oriented x3 Extrem General: No edema Assessment & Plan Assessment & Plan (1) Chronic cholecystitis due to cholelithiasis with choledocholithiasis: Code(s): K80.64 - Calculus of gallbladder and bile duct with chronic cholecystitis without obstruction Category: Medical Plan Patient returns following laparoscopic cholecystectomy. He tolerated the procedure well and his wounds are healing nicely. He may resume normal activity without restrictions as of 02/28/2024. He should return as needed. Medications: Refilled oxycodone Partial Fill upon patient request. 5 mg PO Q6H PRN 15 tabs 0RF pain (scale score 7-10) Coding Level of Care Code Global (20640) Diagnoses Chronic cholecystitis due to cholelithiasis with choledocholithiasis K80.64
== END 2024-02-24 10:02 | disposition home or self-care (01) ==
PROVIDERS: PCP Internal Medicine; Visit Provider Surgery
DX: K80.64 Calculus of gallbladder and bile duct with chronic cholecystitis without obstruction (principal)
CPT/HCPCS: 99024

== ENCOUNTER → 2024-02-24 09:52 | Outpatient (BNVA) | payer OTHER, SELFPAY | PROVIDERS: PCP Internal Medicine; Visit Provider Surgery | DX: Z09 Encounter for follow-up examination after completed treatment for conditions other than malignant neoplasm (principal); Z90.49 Acquired absence of other specified parts of digestive tract | CPT/HCPCS: 99212 ==

== ENCOUNTER 2024-03-30 14:32 | Outpatient (AMB) | payer OTHER, SELFPAY ==
--- NOTE | 2024-03-30 14:48 | MHC.PC.OV ---
Vital Signs 03/30/24 14:50 Height 5 ft 9 in Weight 200 lb 2 oz BMI 29.6 BP 110/66 Blood Pressure Location Lt brachial Position Sitting Pulse 70 Pulse Source Pulse Oximeter Pulse Oximetry (%) 96 Oxygen Delivery Method Room Air Intake Visit Reasons: follow up Intake Note: Patient is here to follow up on Chronic Cholecystitis. Manufacturing Analyst Required: Yes Manufacturing Analyst Language: Senior Pastor Name: José Miguel Wright [id number] Information Interpreted: non-clinical & clinical Vinyl Top Installer: Not Required per policy Accompanied by: Self / Same As Patient Allergies No Known Allergies [No Known Allergies*] Allergy (Verified 03/30/24 14:50) Tobacco use date assessed: 03/30/24 Dental Screening Dental Screen Date: 03/30/24 Did you have a dental visit in the last 12 months?: Yes Did you have a dental problem in the last 6 months where you did not have access to dental care?: No Was dental information given to patient?: Patient has dentist REPLACED BY [facility] Medical History Chronic cholecystitis due to cholelithiasis with choledocholithiasis Surgical History Hx laparoscopic cholecystectomy (02/14/24) Family History (Updated 03/30/24 @ 14:57 by JENNIFER oDve) Father Stomach cancer Social History Housing: House Alcohol intake: never Patient Tobacco Use Status: Never used Tobacco e-Cigarette/Vaping Use: Never Used Second Hand Smoke Exposure: No service: No Current occupational status: employed Current occupational exposures/hazards: No Cognitive needs: No Hearing needs: No Vision needs: No Questionnaire PHQ-9 Over the last 2 weeks, how often have you been bothered by any of the following problems? 1. Little interest or pleasure in doing things: not at all 2. Feeling down, depressed, or hopeless: not at all 3. Trouble falling or staying asleep, or sleeping too much: not at all 4. Feeling tired or having little energy: not at all 5. Poor appetite or overeating: not at all 6. Feeling bad about yourself - or that you are a failure or have let yourself or your family down: not at all 7. Trouble concentrating on things, such as reading the newspaper or watching television: not at all 8. Moving or speaking so slowly that other people could have noticed. Or the opposite - being so fidgety or restless that you have been moving around a lot more than usual: not at all 9. Thoughts that you would be better off or of hurting yourself in some way: not at all Total score: 0 Depression Screening Interpretation: Negative Depression Screening Done: Yes Source: Developed by Drs. Jeanmarie Abreu, Becky Estrada, Jaylen Parham and colleagues, with an educational bartolome from [employer]. Thrive Questionnaire Date Thrive assessed: 03/30/24 AUDIT C Alcohol Use Questionnaire (AUDIT-C) 1. How often do you have a drink containing alcohol?: Never Total Score: 0 SIGRID-7 AMB Questionnaire SIGRID-7 Date SIGRID - 7 assessed: 03/30/24 Feeling nervous, anxious, or on edge: 0 = Not at all Not being able to stop or control worryin = Not at all Worrying too much about different things: 0 = Not at all Trouble relaxin = Not at all Being so restless that it is hard to sit still: 0 = Not at all Becoming easily annoyed or irritable: 0 = Not at all Feeling afraid as if something awful might happen: 0 = Not at all Total SIGRID-7 score (0-4 normal; 5-9 mild; 10-14 moderate; 15-21 severe): 0 Source: Developed by Drs. Jeanmarie Abreu, Becky Estrada, Jaylen Parham and colleagues, with an educational bartolome from [employer]. Physical exam (Primary Care) Vital Signs: Last Vital Signs Pulse 70 03/30/24 14:50 BP 110/66 03/30/24 14:50 Pulse Ox 96 03/30/24 14:50 Oxygen Delivery Method Room Air 03/30/24 14:50 BMI result Body Mass Index 29.6 Tobacco/Smoking Status: Tobacco use Status Tobacco use date assessed 03/30/24 03/30/24 14:59 Patient Tobacco Use Status Never used Tobacco 03/30/24 14:59 e-Cigarette/Vaping Use Never Used 03/30/24 14:59 PHQ-9: PHQ-9 Score PHQ-9: Total score 0 03/30/24 14:59 Depression Screening Interpretation: Negative Thrive Assessment: Date of Thrive Assessment Date Thrive assessed 03/30/24 03/30/24 14:59 Coding Level of Care Code Est Pt Level 3 (74929) Complex EM visit Add On G2211 Diagnoses Rash R21 Assessment & Plan Assessment & Plan (1) Rash: Code(s): R21 - Rash and other nonspecific skin eruption Plan: Dermatology appt scheduled. Plan History of Present Illness The patient is a 43-year-old male presenting with post-operative follow-up after undergoing a cholecystectomy three months ago. He reports feeling generally better post-surgery. Additionally, he presents with concerns regarding an itchy, enlarging lesion on his back, noted to have started approximately two weeks ago. The lesion initially presented as a smaller region, but the patient reports an increase in size. He has been applying a cream provided at a concentration of 2%, though he does not recall the exact name of the medication. The symptoms of itching were particularly notable in the back area. He did not report any associated symptoms such as chest rash or systemic complaints. Health Maintenance Social History Review of Systems - Dermatological: Reports itching on the back; denies chest involvement. Physical Exam General: Cooperative, healthy appearing, comfortable, no acute distress and well developed Orientation: Patient oriented x3 Limitations: No limitations Head: Normal to inspection Ears: Hearing grossly normal bilaterally Nose: Normal external nose present Face and sinus: Normal facial exam Eyes: Appearance normal, both eyes and all related structures Neck: Normal visual inspection and Yes full ROM Respiratory: Normal respiratory effort and able to speak in complete sentences. Clear to auscultation bilaterally Cardiovascular: Regular rate and rhythm. Normal S1 and S2 GI: Normal to inspection. Soft to palpation and nontender Skin: but patient reports itchiness on the back, which was smaller before and has become bigger now.Left axilla: Large hyperpigmented area with central healing. Neuro: Patient oriented x3 Extremities: Normal to inspection Results Plan - Continue monitoring post-operative recovery from cholecystectomy. - Review and adjust dermatological treatment plan for the lesion on the back. Consider reassessing the current topical medication application or changing it if necessary. Patient was informed and verbally consented to the use of an ambient scribe for clinic note documentation during this visit. Discussion Notes I discussed with the patient the progression noted in their dermatological condition, emphasizing the need to maintain or adjust the current treatment plan. We discussed the importance of recognizing any further changes, such as size increase or symptom variation, and to report these promptly. The post-operative follow-up in relation to his cholecystectomy appears satisfactory, with no new symptoms reported. We will continue to monitor overall surgical recovery and address dermatologic concerns systematically. Patient Instructions - Continue using the prescribed cream for the lesion on the back at the specified concentration. - Monitor the lesion for any changes in size, color, or symptom severity. - Contact the clinic if symptoms persist or worsen, or if you have any concerns regarding your health.
[2024-03-30 14:50] VITALS: BP 110/66; PULSE 70; O2SAT 96; BMI 29.6
== END 2024-03-30 15:41 | disposition home or self-care (01) ==
PROVIDERS: PCP Internal Medicine; Visit Provider Internal Medicine
DX: R21 Rash and other nonspecific skin eruption (principal)

== ENCOUNTER → 2024-03-30 14:32 | Outpatient (BNVA) | payer OTHER, SELFPAY | PROVIDERS: PCP Internal Medicine; Visit Provider Internal Medicine | DX: R21 Rash and other nonspecific skin eruption (principal) | CPT/HCPCS: 96127; 99212 ==